=== PATIENT | female | born 2000 | race Caucasian/White ===

== ENCOUNTER 2025-01-09 11:13 | Outpatient (REF) | payer OTHER, SELFPAY ==
[2025-01-09 14:16] LABS: Influenza A PCR NEGATIVE (Negative); Influenza B PCR NEGATIVE (Negative); Resp Syncy Virus RNA Qual PCR NEGATIVE (Negative); SARS COV2 PCR INHOUSE NEGATIVE (Negative)
== END 2025-01-09 11:14 | disposition home or self-care (01) ==
LOC: HO.LAB 11:13
PROVIDERS: Physician Assistant; PCP Internal Medicine
DX: R09.89 Other specified symptoms and signs involving the circulatory and respiratory systems (principal); B34.9 Viral infection, unspecified; R50.9 Fever, unspecified; R05.9 Cough, unspecified
CPT/HCPCS: 0241U

== ENCOUNTER 2025-01-09 11:13 | Outpatient (AMB) | payer OTHER, SELFPAY ==
--- NOTE | 2025-01-09 11:23 | AM.OFFWIN_ITS ---
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 Intake Note: Patient here for cough, feverish, low energy, loss of appetite that has been present for about 2 weeks. Patient Tobacco Use Status: Never used Tobacco Allergies No Known Allergies [No Known Allergies*] Allergy (Unverified 01/09/25 11:25) Do you need a note to return to daycare/school/sports/work: No HPI HPI Comments History of Present Illness Details History - The patient is a 24-year-old female pr esenting with persistent cough, fever, and respiratory symptoms. - The cough commenced nearly two weeks p rior, initially severe enough to disrupt sleep. - She reported flu-like symptoms includi ng subjective fever and chills. - Shortness of breath noted, exacerbated by physical exertion and lying down. - Symptoms included sinus pain, dizzines s, decreased appetite, fatigue, and chest pain related to coughing. - The patient has no prior history of as thma, no smoking or vaping history. - Current medications include Sudafed, A leve, guaifenesin, and doxycycline, initiated three days prior to the visit by her dad who is an MD as examination by her physician father hinted at abnormal lung sounds. - The patient experienced sinus congesti on and ear fluid, with Sudafed providing some relief. Physical Exam General: Cooperative, healthy appearing, comfortable and no acute distress Orientation/consciousness: Patient oriented x3 Limitations: No limitations Head: Normal to inspection Ears: Hearing grossly normal bilaterally, external ears normal and TM's fluid bilat but no infection Nose: Normal external nose present, Normal nares present and No nasal discharge present Face and sinus: Normal facial exam and slight maxillary sinus tenderness Mouth: Normal oral and palatal mucosa present and moist mucous membranes Throat: Yes tonsils normal, Yes uvula midline. Posterior oropharynx erythema, no exudates noted Eyes: Appearance normal, both eyes and all related structures Neck: Normal visual inspection Respiratory: Clear to auscultation bilaterally. Normal respiratory effort, able to speak in complete sentences, Actively coughing, no respiratory distress, not tachypneic, no tripod positioning and no use of accessory muscles. Cardiovascular: Regular rate and rhythm. Normal S1 and S2 Skin: No rashes or lesions noted Neuro: Patient oriented x3 Extremities: Normal to inspection and Yes no clubbing, cyanosis or edema [facility] Social History Patient Tobacco Use Status: Never used Tobacco Review of Systems Const All systems reviewed & are unremarkable except as noted in HPI and below Physical Exam Vital Signs: Last Vital Signs Temp 98.7 F 01/09/25 11:24 Pulse 101 H 01/09/25 11:24 BP 110/78 01/09/25 11:24 Pulse Ox 97 01/09/25 11:24 Oxygen Delivery Method Room Air 01/09/25 11:24 BMI result Body Mass Index 20.2 Assessment & Plan Assessment & Plan (1) Acute viral syndrome: Code(s): B34.9 - Viral infection, unspecified Plan: Plan The patient's presenting symptoms are indicative of an acute respiratory illness with suspected influenza. A viral diagnostic test for Flu, Covid and RSV will confirm etiology, influencing the antibiotic regimen potentially ceasing doxycycline if viral infection is substantiated. Symptomatic management is prioritized with prescriptions for Tessalon Perles for nocturnal cough suppression and albuterol for shortness of breath. The patient is encouraged to maintain adequate hydration, use Flonase for sinus issues, and continue taking analgesics for cough-related chest pain. Further monitoring and adjustments to the treatment will depend on the test results and clinical progression. Patient was informed and verbally consented to the use of an ambient scribe for clinic note documentation during this visit Orders: Orders SARS-CoV2/FLU/RSV Today R09.89 - Other specified symptoms and signs involving the circulatory and respiratory systems Medications: New benzonatate 200 mg PO BEDTIME PRN 10 caps 0RF cough albuterol sulfate 90 mcg/actuation 2 puffs inhalation Q6H PRN 8.5 grams 0RF shortness of breath or wheezing or cough Discontinued ciprofloxacin-dexamethasone 0.3-0.1 % (Ciprodex) Discontinued Reason: Patient Completed Course 4 drps otic (ear) left BID 7 days 7.5 mL 0RF H60.339 - Swimmer's ear, unspecified ear amoxicillin-pot clavulanate 250-62.5 mg/5 mL Discontinued Reason: Patient Completed Course 5 mL PO BID 10 days 100 mL 0RF infection Coding Level of Care Code Est Pt Level 3 (57506) Diagnoses Acute viral syndrome B34.9
[2025-01-09 11:24] VITALS: BP 110/78; PULSE 101; TEMP 37.1; O2SAT 97; BMI 20.2
--- OUTSIDE RECORDS SUMMARY | 2025-01-09 12:50 | XMS_ITS | Data Portability ---
Author Organization [place] - [facility], [facility] Address [address] [address] Assessment Encounter Date Assessment Date Assessment LastModified by Organization Details LastModified Time 06/11/2021 06/11/2021 Krissy is a [age] year old pleasant female presenting for routine WCC. She is entering her senior year at [employer] and doing well in school. Staying very busy academically, though with some significant changes educationally and socially. Was doing remote learning all of last year, and understandably weary of upcoming transition of going back to school, particularly with many life changes and challenges. Is eventually thinking of going to law school, but wants to wait for pandemic to get under better control before going to graduate school. Has continued seeing her therapist at school and has good therapeutic alliance, and anxiety is improved on Lexapro 10 mg. No SA. Was abroad in [place] last year and switched from Orsythia to Richa (has been on new OCP x1 month), with some prolonged spotting. Is planning to try it for another 1-2 months and will call if she decides she wants to try a different brand, as Orsythia has been discontinued. [email or web address] Not available 06/11/2021 20:32:11 Plan of Treatment Reminders Order Date Submit Date Provider Last Modified By Organization Details Last Modified Time Details Appointments None recorded. Lab CT + NG DNA, PCR, urine 2019 020 ARMIDA [facility] (Centralized Electronic Ordering - All Locations), Patient Can Go To The Location Of Their Choice, [id number] 0 12:52:20 Referral internal medicine referral - 20 year old pleasant female with history of anxiety and IBS (followed by GI), looking to establish care with adult physician. 2020 021 [email or web address] Not available 1 09:00:38 Procedures None recorded. Surgeries None recorded. Imaging None recorded. Medication Orders escitalopr am 10 mg tablet 2020 021 ARMIDA [id number], [address], [place], [address], 1 14:54:07 Orsythia 0.1 mg-20 mcg tablet 2019 020 INTERFACE [facility], [address] [place], [address], 0 10:50:50 escitalopr am 10 mg tablet 2019 020 INTERFACE [facility], [address] [place], [address], 0 10:50:50 Orsythia 0.1 mg-20 mcg tablet 2019 020 INTERFACE [facility], [address] [place], [address], 0 09:22:00 escitalopr am 10 mg tablet 2019 020 INTERFACE [facility], [address] [place], [address], 0 09:22:00 escitalopr am 10 mg tablet 2018 019 INTERFACE [facility], [address] [facility], [place], [address], 9 14:16:02 Orsythia 0.1 mg-20 mcg tablet 2018 019 INTERFACE [facility], [address] [place], [address], 9 14:45:57 Patient TargetsNo targets recorded. Patient Instructions Encounter Date Encounter Id Patient Instructions Last Modified By Organization Details Last Modified Time 03/09/2020 [id number] program - 5 fruits & veggies sgins Not available 03/09/2020 09:21:58 [id number] program - 1 hour of exercise sgins Not available 03/09/2020 09:21:58 patient health questionnaire depression assessment* sgins Not available 03/09/2020 09:21:58 immunization: what you need to know sgins Not available 03/09/2020 09:21:58 06/11/2021 [id number] anxiety disorder : care instructions [email or web address] Not available 06/11/2021 14:54:04 [id number] program - 5 fruits & veggies jtakores Not available 06/11/2021 14:54:03 [id number] program - 1 hour of exercise jtakores Not available 06/11/2021 14:54:04 patient health questionnaire depression assessment* jtakores Not available 06/11/2021 14:54:04 immunization: what you need to know jtakores Not available 06/11/2021 14:54:04 Reason for Referral Internal Medicine Referral f or Adult health examination 20 year old pleasant female with history of anxiety and IBS (followed by GI), looking to establish care with adult physician. Referring Physician: Blanca Manuel, Pediatric Medicine, Encounter Date: 06/11/2021 Results Created Date Observation Date Name Description Value Unit Range Abnormal Flag Note LastModifiedBy Organization Detail LastModifiedTime 06/10/2006/11/2021 patie nt healt h quest ionna krysten depre ssion asses sment * PHQ-9 positi ve Not Available [facility] [address] [place] [address], [place], [address], 06/10/2021 12:36:14 03/09/20 20 03/12/2020 CT + NG DNA, PCR, urine urine chlamydia amp probe (neg) normal NEGAT LISA No Chlam ydia Trach omati s RNA detec lesia in this patie nt's sampl e (REFE RENCE RANGE /NORM AL VALUE : NOT DETEC LESIA) Note: This test uses trans cript ion- media lesia ampli ficat ion metho d to detec t rRNA from C. Trach omati s Not Available [facility] (Centralized Electronic Ordering - All Locations) Patient Can Go To The Location Of Their Choice, [id number] 03/12/2020 12:52:20 03/09/20 20 03/12/2020 CT + NG DNA, PCR, urine urine GC amp probe (neg) normal NEGAT LISA No Neiss eria Gonor rhoea e RNA detec lesia in this patie nt's sampl e (REFE RENCE RANGE /NORM AL VALUE : NOT DETEC LESIA) NOTE: This test uses trans cript ion-m ediat ed ampli ficat ion metho d to detec t rRNA from N.Robert orrho eae. A negat lisa resul t does not precl ude infec tion. In the case of a negat lisa urine resul t, testi ng of an endoc ervic al(fe male) or ureth ral (male ) speci men is recom zack d if there is high clini edin suspi cion of infec tion. Due to very high sensi tivit y of Nucle ic Acid Ampli ficat ion Test, false posit lisa resul ts may occur . There fore, speci men handl ing is extre etta impor tant. In patie nts in whom the disea se is unlik susan, addit ional sampl e for testi ng shoul d be consi dered after an initi al posit lisa resul t. The perfo rmanc e vincent cteri stics of this test have not been evalu ated in child stefan. The Aptim a Combo 2 assay is not inten ded for the evalu ation of suspe cted sexua l abuse or for other medic o-leg al indic ation s. The order ing provi patty shoul d asses s if the patie nt had conse nsual sex witho ut risk of sexua l abuse . Consu lt [facility] if neede d. Conta ct phone numbe r . Thera peuti c failu re or succe ss canno t be deter mined with the Aptim a Combo 2 assay since nucle ic acid may persi st follo wing appro priat e antim icrob ial thera py. The Cente rs for Disea se Contr ol and Preve ntion (FORMERLY NAMED [facility]) recom mends confi rmato ry retes ting using cultu re or a diffe rent nucle ic acid ampli ficat ion test when posit lisa resul ts occur , if indic ated. Not Available [facility] (Centralized Electronic Ordering - All Locations) Patient Can Go To The Location Of Their Choice, [id number] 03/12/2020 12:52:20 03/09/20 20 03/09/2020 patie nt healt h quest ionna krysten depre ssion asses sment * PHQ-9 positi ve Not Available [facility] [address] [place] [address], [address], 03/05/2020 11:55:37 Result Notes None recorded. Problems Name Problem SNOMED Code Status Onset Date Resolution Date Notes Provider Name and Address Organization Details Recorded Time Anxiety 62108071 Active 2014 Not Available [facility] 1 09:52:39 Disorder of menstrua tion 589675124 Active Not Available [facility] 1 09:52:39 Lactose intolera nce Active 2017 lactaid disc trial Not Available [facility] 09:52:39 Irritabl e bowel syndrome 71813883 Active 2020 Abby Langston DO [address], [place], , [facility] 1 21:44:53 Generali zed anxiety disorder 92209761 Active 2020 Fidelina Conway MD [address], [place], , [facility] 1 22:29:49 Acute sinusiti s 31305311 Completed 01/18/2013 Not Available [facility] 3 03:01:18 Wrist joint pain 841475791 Com[facility]18[facility] 15:31:33 Acute pharyngi tis 345633228 Completed 01/18/2013 Not Available [facility] 3 03:01:18 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 Medical Equipment None Reported. Allergies No known drug allergies Medications Name Sig Start Date Stop Date Status Note LastModified by Organization Details LastModified Time ciprodex diana 0.3-0.1% active Not Available Not Available Not Available amoxicillin 500 mg capsule 01/16 completed Not Available Not Available Not Available doxycycline hyclate 100 mg capsule take 1 capsule by mouth twice a day until finished active Not Available Not Available No t Available cefpodoxime 200 mg tablet 06/17 completed Not Available Not Available Not Available azithromyci n 250 mg tablet Take 2 tablets (500 mg) by oral route once daily for 1 day then 1 tablet (250 mg) by oral route once daily for 4 days active Not Available Not Available No t Available ibuprofen 800 mg tablet 01/16 completed Not Available Not Available Not Available Nystop 100,000 unit/gram topical powder active Not Available Not Available Not Available sulfamethox azole 800 mg-trimetho prim 160 mg tablet 09/30 completed Not Available Not Available Not Available triamcinolo ne acetonide 0.1 % topical cream APPLY THIN COAT TO AFFECTED AREA TWICE A DAY 05/24 completed Not Available Not Available Not Available oxycodone-a cetaminophe n 5 mg-325 mg tablet 01/16 completed Not Available Not Available Not Available ofloxacin 0.3 % ear drops active Not Available Not Available Not Available hyoscyamine sulfate 0.125 mg tablet TAKE 1 TABLET BY MOUTH FOUR TIMES A DAY NEEDED active Not Available Not Available No t Available oseltamivir 75 mg capsule 01/16 completed Not Available Not Available Not Available ondansetron 4 mg disintegrat ing tablet 01/21 completed Not Available Not Available Not Available escitalopra m 10 mg tablet TAKE 1 TABLET BY MOUTH EVERY DAY 2021 active Not Available Not Available Not Avai lable ProAir HFA 90 mcg/actuati on aerosol inhaler INHALE 2 PUFFS EVERY 4 HOURS NEEDED 06/17 completed Not Available Not Available Not Available Larissia 0.1 mg-20 mcg tablet TAKE 1 TABLET BY MOUTH EVERY DAY active Not Available Not Available No t Available Afluria Qd 2019-20 (36 mos up)(PF)60 mcg (15 mcg x4)/0.5 mL IM syringe 03/09 completed Not Available Not Available Not Available Vitals Date Recorded Body height Body mass index (BMI) Body mass index (BMI) Percentile per age and sex Body weight Systolic blood pressure Diastolic blood pressure Provider Name and Address Organization Details Last Updated DateTime 9 186.69 cm 22 kg/m2 54 % 82991.1 1 g 110 mm[Hg] 60 mm[Hg] Alexandra Acevedo [facility] 9 14:23:25 Date Recorded Body height Body mass index (BMI) Body mass index (BMI) Percentile per age and sex Body weight Systolic blood pressure Diastolic blood pressure Provider Name and Address Organization Details Last Updated DateTime 9 186.69 cm 22.9 kg/m2 63 % 94979.9 8 g 114 mm[Hg] 58 mm[Hg] Anjum Zafar [facility] 9 14:05:19 Date Recorded Body height Body mass index (BMI) Percentile per age and sex Body mass index (BMI) Body weight Systolic blood pressure Diastolic blood pressure Provider Name and Address Organization Details Last Updated DateTime 0 186.69 cm 64 % 23.1 kg/m2 55513.2 9 g 116 mm[Hg] 62 mm[Hg] Anjum Zafar [facility] 0 08:57:56 Date Recorded Body height Body mass index (BMI) Percentile per age and sex Body mass index (BMI) Body weight Systolic blood pressure Diastolic blood pressure Provider Name and Address Organization Details Last Updated DateTime 0 186.69 cm 60 % 22.7 kg/m2 88633.9 5 g 118 mm[Hg] 64 mm[Hg] Janeth Bradford R.N. [facility] 0 10:29:58 Date Recorded Body height Body mass index (BMI) Body weight Provider Name and Address Organization Details Last Updated DateTime 06/11/2021 186.69 cm 21.9 kg/m2 34921.52 g Molly Babita [facility] 06/11/2021 14:05:28 Social History Question Answer Notes LastModified by Organfletcherat nicole Details LastModified Time Tobacco Smoking Status Never Smoker Carolyn Salazar manny, [facility] 01/09/2012 15:11:26 What Type Of Diet Are You Following? REGULAR Vitamins, No Junk Food Fruits And Veggies Meat Chicken Fish Information not available 12/13/2009 Have There Been Any Changes To Your Family Or Social Situation? Yes Lived In [facility] June 2020-May 2021 [email or web address] Information not available 06/11/2021 Hard Of Hearing Or Deaf In One Or Both Ears? No Information not available 01/08/2016 Legally Blind In One Or Both Eyes? No Information not available 01/08/2016 Parent's Marital Status [email or web address] Information not available 09/06/2011 Home Situation Both Parents [email or web address] Information not available 09/06/2011 Siblings Phippa (F) 09/27/2004, David (M) 11/19/2001 [email or web address] Information not available 09/06/2011 Passive Smoke Exposure No [email or web address] Information not available 09/06/2011 Year In School College [employer] Fall 2020 Information not available 01/21/2019 Parent's Name Allison Arevalo --PhD Educational Policy Home With Kids Now [email or web address] Information not available 09/06/2011 Parent's Name Josh Lopez ----urologic Surgeon [email or web address] Information not available 09/06/2011 DSS/DCF Custody No Information not available 01/21/2019 What Was The Date Of Your Most Recent Tobacco Screening? 01/21/2019 Information not available 05/26/2019 What Is The Name Of Your School? [employer] 150 Reads 300 Pages A Day Information not available 12/13/2009 Do You Use Your Seat Belt Or Car Seat Routinely? Yes [email or web address] Information not available 09/06/2011 Are You Passively Exposed To Smoke? No Information not available 01/18/2013 How Much Tobacco Do You Smoke? No Information not available 01/08/2016 Sex: Unknown Functional Status None recorded. Mental Status None recorded. Family History Relationship Description Onset Age of this Age Resolved Age Notes LastModified by Organization Details LastModified Time Mother No current problems or disability [email or web address] Not available 01/07 09:02:07 Mother Pneumococcal meningitis at 6 months of age [email or web address] Not available 01/19/2018 08:57:09 Father No current problems or disability klisien Not available 01/07 09:02:07 Father Diabetes mellitus Type II [email or web address] Not available 05/10/2021 12:49:04 Maternal Grandmother No current problems or disability klisien Not available 01/07 09:02:07 Paternal Grandmother Malignant neoplastic disease breast klisien Not available 2015 09:02:07 Maternal Grandfather Accidental DECEAS ED klisien Not available 01/08/2016 09:02:07 Paternal Grandfather Malignant neoplastic disease neurob lastom a klisien Not available 01/08/2016 09:02:07 Paternal Aunt Malignant neoplastic disease thyroi d klisien Not available 01/08/2016 09:02:07 Notes:updated 06/22 Medical History Condition Response CARDIAC PROBLEMS N ALLERGIC AND IMMUNOLOGIC PROBLEMS N DEVELOPMENTAL/ BEHAVIORAL PROBLEMS N MUSCLE/ JOINT/ BONE PROBLEMS N DERMATOLOGIC PROBLEMS/ECZEMA N HOSPITALIZATIONS N ENT PROBLEMS/OTITIS MEDIA/ CHRONIC N HEMATOLOGIC /ONCOLOGIC PROBLEMS N RENAL PROBLEMS N ACCIDENTS INJURIES N OTHER Y NEUROLOGIC/ SEIZURES OR CONVULSIONS N ADHD N ENDOCRINE PROBLEMS/DIABETES N HEADACHES/MIGRAINES/DIZZINESS N GI PROBLEMS/CONSTIPATION Y CONGENITAL AND GENETIC PROBLEMS N ORTHOPEDIC PROBLEMS Y CHICKEN POX / VARICELLA HISTORY or POSIT LISA TITER N PUMONARY PROBLEMS/ ASTHMA N PSYCH PROBLEMS N Gynecological History Statement/Question Response Y Y Y Date of LMP 06/11/2021 N N Age at onset of periods almost 13 yrs Obstetrics History GPAL:G 0 P 0 0 0 0 Immunizations Vaccine Type Date Status Note Provider Nam e and Address Organization Details Recorded Time meningococcal MCV4P 1 completed Not Available [facility] 11/19/2019 02:33:25 Tdap 1 completed Not Available [facility] 11/19/2019 02:33:42 Novel [id number], nasal 9 completed Not Available [facility] 11/19/2019 02:34:48 DTaP, unspecified formulation 0 completed Not Available [facility] 09/06/2011 03:18:43 DTaP, unspecified formulation 1 completed Not Available [facility] 09/06/2011 03:18:43 DTaP, unspecified formulation 0 completed Not Available [facility] 09/06/2011 03:18:43 DTaP, unspecified formulation 0 completed Not Available [facility] 09/06/2011 03:18:43 OPV 0 completed Not Available [facility] 09/06/2011 03:18:43 OPV 0 completed Not Available [facility] 09/06/2011 03:18:43 OPV 0 completed Not Available [facility] 09/06/2011 03:18:43 MMR 4 completed Not Available [facility] 09/06/2011 03:18:43 Hep B, unspecified formulation 1 completed Not Available [facility] 09/06/2011 03:18:43 Hep B, unspecified formulation 0 completed Not Available [facility] 09/06/2011 03:18:43 Hib, unspecified formulation 0 completed Not Available [facility] 09/06/2011 03:18:43 Hib, unspecified formulation 1 completed Not Available [facility] 09/06/2011 03:18:43 Hib, unspecified formulation 0 completed Not Available [facility] 09/06/2011 03:18:43 Hib, unspecified formulation 0 completed Not Available [facility] 09/06/2011 03:18:43 Hep B, unspecified formulation 0 completed Not Available [facility] 09/06/2011 03:18:43 MMR 8 completed Not Available [facility] 09/06/2011 03:17:07 HPV, quadrivalent 4 completed Not Available [facility] 11/19/2019 02:34:11 HPV, quadrivalent 4 completed Not Available [facility] 11/19/2019 02:34:12 varicella 9 completed Not Available [facility] 09/06/2011 03:17:07 HPV, quadrivalent 4 completed Not Available [facility] 11/19/2019 02:34:15 meningococcal MCV4P 6 completed Not Available [facility] 11/19/2019 02:36:38 influenza, unspecified formulation 6 completed Mayte Snow null, [facility] 01/16/2017 12:57:19 Influenza, split virus, quadrivalent, preservative 7 completed Ophelia Snow [facility], [facility] 01/19/2018 08:54:27 COVID-19, mRNA, LNP-S, PF, 30 mcg/0.3 mL dose 1 completed Dina Cevallos [facility] 05/13/2021 07:46:50 meningococcal B, OMV 8 completed Not Available [facility] 11/19/2019 02:38:20 meningococcal B, OMV 8 completed Not Available [facility] 11/19/2019 02:38:26 Influenza, split virus, quadrivalent, PF 9 completed Not Available [facility] 11/19/2019 02:39:11 Hep A, adult 0 completed Natasha Servin LPN [facility] 03/09/2020 09:35:57 Hep A, adult 1 completed BLANCA MANUEL MD [address] [place] [address], , [facility] 06/11/2021 20:25:59 Tdap 1 completed BLANCA MANUEL MD [address] [place] [address], , [facility] 06/11/2021 20:25:59 MMR 1 completed Not Available [facility] 09/06/2011 03:17:07 varicella 2 completed Not Available [facility] 09/06/2011 03:17:07 DTaP, unspecified formulation 4 completed Not Available [facility] 09/06/2011 03:17:07 IPV 4 completed Not Available [facility] 09/06/2011 03:17:07 Past Encounters Encounter ID Performer Location Encounter Start Date Encounter Closed Date Diagnosis/Indication Diagnosis SNOMED-CT Code Diagnosis ICD10 Code Diagnosis Note [id number] [facility] [place] [facility] [address] [place] [address] 05/31/2008 09:09:08 07/12/2009 01:23:50 [id number] [facility] [place] [facility] [address] [place] [address] 11/22/2008 09:58:49 07/12/2009 01:23:50 [id number] [facility] [place] [facility] [address] [place] [address] 12/13/2009 12:51:53 12/13/2009 13:24:01 [id number] [facility] [place] [facility] [address] [place] [address] 12/13/2010 15:21:24 12/13/2010 16:01:44 [id number] [facility] [place] [facility] [address] [place] [address] 01/09/2012 14:59:23 01/09/2012 15:31:39 [id number] Liza Pozo [facility] [address] [place] [address] 12/17/2012 08:39:42 12/17/2012 09:22:51 [id number] Lizasophie Pozo [facility] [address] [place] [address] 01/18/2013 09:33:52 01/18/2013 12:42:38 [id number] Liza Pozo [facility] [place] [address] [place] [address] 02/21/2013 09:16:59 02/21/2013 09:35:53 [id number] Fidelina Jemal [facility] [place] [facility] [address] [place] [address] 01/18/2014 15:01:34 01/18/2014 15:37:34 Well child [id number] HEALTHY BRIGHT FEMALE Menarche 10/14 9th grade - superb student- [employer] - more friends many sports [id number] Maegan Williamson MD [facility] [address] [place] [address] 03/21/2014 14:58:35 03/21/2014 15:52:39 Administration of viral vaccine 36918948 Shot only HPV [id number] Rad Hernandez MD [facility] [address] [address] 09/27/2014 09:28:52 09/27/2014 10:16:29 Administration of viral vaccine 99773798 Shot only HPV [id number] [facility] [address] [address] 01/02/2015 08:30:52 01/02/2015 09:06:57 Well child [id number] HEALTHY BRIGHT FEMALE Menarche 10/14 9th grade - [facility] [place] - more friends [employer]- Likes roommates- high honors Anxiety 62863156 disc mindfullne ss - consider therapist Dysmenorrhea 962161389 N aprosyn trial- does not want OCP for this issue [id number] Fidelina Joaquin [facility] [address] [address] 09/24/2015 15:31:30 09/24/2015 16:46:02 Disorder of menstruation 290992028 N92.6 [id number] Liza Pozo [facility] [address] [address] 01/08/2016 08:50:33 01/08/2016 09:45:36 Active or passive immunization 569085577 Z23 Well child 431119262 Z00 .121 HEALTHY BRIGHT FEMALEMena rche 10/14 10th-11th grade - [employer] [facility] [facility] [place] [facility]-Cre w likesLikes roommates a lot- high honorsAnxi ety- therapist at school Anxiety 74679517 F41.9 sees a therapist at school - not so connected with new therapistd isc needs new therapist no medication at this point Disorder o f menstruation 022666114 N92.6 stable on Orsythia- [id number] Liza Pozo [facility] [address] [address] 01/16/2017 12:46:29 01/16/2017 14:13:32 Well child 249277604 Z00.129 HEALTHY BRIGHT FEMALE 11th grade - superb student- [employer] in [facility] sports-Cre w likesNo roommate a lot- high honorsAdevora ety- therapist at school PRN Rib pain 195980811 R07.8 1 cough ? 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 [id number] Liza Pozo [facility] [address] [address] 04/16/2018 13:59:42 04/16/2018 15:24:53 Active or passive immunization 098466009 Z23 Anxiety 92126181 F41.9 Generalize d adn social anxietyHad a therapist at school- [place] [employer] in [place]Hx of anxiety is quite prominentd isc in past - at length - benefits and cons of antianxiet y medication [facility] Calm- disc CBTMindful nessMore than 40 minutes spent- more than 50% of time spent counseling Adjustment disorder with anxious mood 60166152 F43.22 Starting school is anxiety provoking [id number] Niles Lemus [facility] [place] [address] [place] [address] 06/21/2018 15:01:13 06/21/2018 15:38:48 Eczema [id number] L30.9 [id number] Liza Pozo [facility] [address] [place] [address] 06/23/2018 09:36:17 06/23/2018 10:40:19 Anxiety [id number] F41.9 Generalize d and social anxietysamanthao for therapist in [place]- ? [facility] THERAPISTF [facility] in Fall 2017Hx of anxiety is quite prominent and much improved on Lexapro- but may need to increase to 15 mg q day- disc with patient and parent and will need to contact me if any concerns and recheck in 3 months or sooner PRNdisc in past - at length - benefits and cons of antianxiet y medication Mindfulnes sMore than 30 minutes spent- more than 50% of time spent counseling Sweating [id number] R61 ? cont to monitor if anxiety - consider labs for pheo for reassuranc e - does not have headache or triad Abdominal pain [id number] R10.9 likely IBS and anxiety- disc at length [id number] Liza [employer] [address] [facility] [place] [address] 10/28/2018 10:50:26 10/28/2018 11:35:08 Anxiety 15607600 F41.9 Generalize d and social anxiety doing very well on Lexapro 10 mgHAS THERAPISTF [facility] in Fall 2017Hx of anxiety much improved on Lexapro- 10 mg q day- disc with patient and parent and will need to contact me if any concerns and recheck in 3 months or sooner PRNLoves school, grades excellent, no sleep problems, eating well no concerns except BF breakup which was difficult More than 30 minutes spent- more than 50% of time spent counseling Weight is stable and she is doing very well [id number] Liza Pozo [facility] [address] [facility] [place] [address] 01/21/2019 12:26:36 01/21/2019 13:33:54 Active or passive immunization [id number] Z23 Adult heal th examination 440669019 Z00.00 [place] Fall 2018 Sophomore- eventually law schoolExce llent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
== END 2025-01-09 12:09 | disposition home or self-care (01) ==
PROVIDERS: PCP Internal Medicine; Visit Provider Physician Assistant
DX: B34.9 Viral infection, unspecified (principal)